=== PATIENT | female | born 1985 | race Caucasian/White ===

== ENCOUNTER 2021-04-18 08:38 | Emergency (ER) | payer OTHER ==
[2021-04-18] MEDS ORDERED: NORCO 5-325 TA1 EACH PO (10:03)
[2021-04-18] MEDS ORDERED: NAPROXEN500 MG PO (10:03)
[2021-04-18] MEDS ORDERED: CLEOCIN300 MG PO (10:03)
== END 2021-04-18 10:23 | disposition home or self-care (01) ==
LOC: FER 08:38
DX: S91.332A Puncture wound without foreign body, left foot, initial encounter (principal); Z23 Encounter for immunization; W26.8XXA Contact with other sharp object(s), not elsewhere classified, initial encounter; Y92.009 Unspecified place in unspecified non-institutional (private) residence as the place of occurrence of the external cause
CPT/HCPCS: 73630; 90471; 90715

== ENCOUNTER 2022-06-23 12:33 | Emergency (ER) | payer OTHER ==
[~2022-06-23 12:33] MED LIST: CLEOCIN300 MG PO; NAPROXEN500 MG PO; NORCO 5-325 TA1 EACH PO
[2022-06-23] MEDS ORDERED: BACLOFEN 10MG T10 MG PO (15:34)
[2022-06-23] MEDS ORDERED: PREDNISONE 20MG20 MG PO (15:34)
== END 2022-06-23 15:55 | disposition home or self-care (01) ==
LOC: FER 12:33
DX: M54.50 Low back pain, unspecified (principal); J45.909 Unspecified asthma, uncomplicated; Z88.0 Allergy status to penicillin; Z88.1 Allergy status to other antibiotic agents; Z88.8 Allergy status to other drugs, medicaments and biological substances; Z91.040 Latex allergy status; Z28.310 Unvaccinated for COVID-19
CPT/HCPCS: 72110; J1885